=== PATIENT | female | born 1985 | race Caucasian/White ===

== ENCOUNTER → 2016-11-11 | Outpatient (CLI) | payer BC ==
[~2016-11-11] MED LIST: ATIVAN 1MG T1 MG/TAB PO; CEPHALEXIN500 M1 PO; CETIRIZINE; CLINDAMYCIN HC300 MG PO; CYMBALTA 20MG20 MG; CYMBALTA 60MG60 MG PO; DROSPIRENONE; FOLIC ACID0.4 MG PO; IBU800 M1 PO; IRON; PERCOCET 325 MG1 TA2 PO; PERCOCET 5/321 UDTAB PO; PLAQUENIL; PLAQUENIL 200M200 MG PO; PRENATAL1 TA7 PO; PREVACID30 MG PO; PROTONIX 40MG T40 MG PO; SINGULAIR; SINGULAIR 110 MG/TAB PO; VITAMIN E 400 U4001 PO; VITAMIN E200 I1 PO; ZYRTEC 10MG10 MG PO
== END ==
LOC: BHSO 08:28
DX: F33.41 Major depressive disorder, recurrent, in partial remission (principal)

== ENCOUNTER → 2016-12-23 | Outpatient (CLI) | payer BC | LOC: BHSO 15:33 | DX: F33.41 Major depressive disorder, recurrent, in partial remission (principal) ==

== ENCOUNTER → 2017-01-19 | Outpatient (CLI) | payer BC | LOC: BHSO 15:36 | DX: F33.41 Major depressive disorder, recurrent, in partial remission (principal) ==

== ENCOUNTER → 2017-03-31 | Outpatient (CLI) | payer BC | LOC: BHSO 15:35 | DX: F33.41 Major depressive disorder, recurrent, in partial remission (principal) ==

== ENCOUNTER → 2017-04-28 | Outpatient (CLI) | payer BC | LOC: BHSO 15:38 | DX: F33.41 Major depressive disorder, recurrent, in partial remission (principal) ==

== ENCOUNTER → 2017-05-26 | Outpatient (CLI) | payer BC | LOC: BHSO 15:14 | DX: F33.42 Major depressive disorder, recurrent, in full remission (principal) ==

== ENCOUNTER → 2017-06-29 | Outpatient (CLI) | payer BC | LOC: BHSO 15:12 | DX: F33.42 Major depressive disorder, recurrent, in full remission (principal) ==

== ENCOUNTER → 2017-07-28 | Outpatient (CLI) | payer BC | LOC: BHSO 15:20 | DX: F33.8 Other recurrent depressive disorders (principal) ==

== ENCOUNTER → 2017-09-08 | Outpatient (CLI) | payer BC | LOC: BHSO 15:19 | DX: F33.41 Major depressive disorder, recurrent, in partial remission (principal) ==

== ENCOUNTER 2017-10-02 16:38 | Inpatient (IN) | payer BC ==
[~2017-10-02] VITALS: Ht 165.1 cm; Wt 149.5 kg
[2017-11-13] VITALS (14 sets, daily range): BP systolic 112–139; BP diastolic 60–120; PULSE 68–107; TEMP 97.2–99
[2017-11-13] MEDS ORDERED: NATURAL IRON65 MG (10:48)
[2017-11-13] MEDS ORDERED: PLAQUENIL 200M200 MG PO (10:48)
[2017-11-13] MEDS ORDERED: PROTONIX 40MG T40 MG PO (10:48)
[2017-11-13] MEDS ORDERED: PRENATAL (10:49)
[2017-11-13] MEDS ORDERED: CYMBALTA 60MG60 MG PO (10:49)
[2017-11-13] MEDS ORDERED: SINGULAIR 110 MG/TAB PO (10:49)
[2017-11-13] MEDS ORDERED: ZYRTEC 10MG10 MG PO (10:49)
[2017-11-13] MEDS ORDERED: FOLIC ACID0.4 MG PO (10:50)
[2017-11-13] MEDS ORDERED: VITAMIN E 400 U4001 PO (10:50)
[2017-11-13 11:14] LABS: BASO % 0.3 % (0.0-2.0); EOS % 0.5 % (0-4.0); GRAN # 4.5 (1.4-6.5); GRAN % 73.5 % (42.2-75.2); HEMATOCRIT 37.6 % (37.0-47.0); HEMOGLOBIN 12.7 g/dl (12.5-16.0); LYMPH # 1.2 (1.2-3.4); MEAN CELL VOLUME 93 fl (80.0-100.0); MEAN CORPUSCULAR HEMOGLOBIN 31 pg (27.0-31.0); MEAN CORPUSCULAR HGB CONC 34 g/dl (33.0-37.0); MEAN PLATELET VOLUME 9.7 fl (7.4-10.4); MONO # 0.4 (0.1-0.6); MONO % 5.7 % (1.7-9.3); PLATELET COUNT 190 K/mm3 (130-400); RED BLOOD COUNT 4.05 M/mm3 (4.10-5.30); REDCELL DISTRIBUTION WIDTH-CV 13.4 % (11.5-14.5)
[2017-11-14 01:00] VITALS: BP 124/71; PULSE 89; TEMP 97.7
[2017-11-14 06:56] LABS: BASO % 0.4 % (0.0-2.0); EOS # 0.1 (0.0-0.7); EOS % 1.3 % (0-4.0); GRAN # 5.7 (1.4-6.5); GRAN % 73.5 % (42.2-75.2); LYMPH # 1.4 (1.2-3.4); LYMPH % 18.2 % (20.0-51.0); MEAN CELL VOLUME 93 fl (80.0-100.0); MEAN CORPUSCULAR HGB CONC 34 g/dl (33.0-37.0); MONO # 0.5 (0.1-0.6); MONO % 5.8 % (1.7-9.3); PLATELET COUNT 187 K/mm3 (130-400); RED BLOOD COUNT 3.75 M/mm3 (4.10-5.30); REDCELL DISTRIBUTION WIDTH-CV 13.2 % (11.5-14.5)
[2017-11-14 06:58] LABS: HEMATOCRIT 34.8 % (37.0-47.0); HEMOGLOBIN 11.9 g/dl (12.5-16.0); MEAN CORPUSCULAR HEMOGLOBIN 32 pg (27.0-31.0)
[2017-11-14 07:43] VITALS: BP 102/58; PULSE 90; TEMP 97.6
[2017-11-14] MEDS ORDERED: MOTRIN 600600 MG/TAB PO (08:52)
[2017-11-14] MEDS ORDERED: PERCOCET 325 MG1 TA2 PO (08:52)
[2017-11-14 15:57] VITALS: BP 121/77; PULSE 91; TEMP 98.3
[2017-11-14 20:15] VITALS: BP 137/74; PULSE 88; TEMP 97.4
[2017-11-15 06:34] VITALS: BP 136/88; PULSE 77
== END 2017-11-15 14:55 | disposition home or self-care (01) | DRG 765 ==
LOC: OB 11-13 09:37 → LDR 11-13 15:33 → OB 11-15 14:55 → LDR 11-16 13:17
PROVIDERS: Obstetrics & Gynecology
PROC: 10D00Z1 Extraction of Products of Conception, Low, Open Approach (ICD-10-PCS; principal; 2017-11-13)
DX: O34.211 Maternal care for low transverse scar from previous cesarean delivery (principal); Z68.43 Body mass index [BMI] 50.0-59.9, adult; N85.8 Other specified noninflammatory disorders of uterus; O99.214 Obesity complicating childbirth; E66.01 Morbid (severe) obesity due to excess calories; Z3A.39 39 weeks gestation of pregnancy; Z37.0 Single live birth
CPT/HCPCS: J0690; J1885; J2270; J2370; J2405; J2590; J2765; J7120

== ENCOUNTER → 2017-10-06 | Outpatient (CLI) | payer BC | LOC: BHSO 15:00 | DX: F33.42 Major depressive disorder, recurrent, in full remission (principal) ==

== ENCOUNTER → 2017-12-07 | Outpatient (CLI) | payer BC ==
[~2017-12-07] MED LIST changes: +MOTRIN 600600 MG/TAB PO; +NATURAL IRON65 MG; +PRENATAL
== END ==
LOC: BHSO 10:03
DX: F33.41 Major depressive disorder, recurrent, in partial remission (principal)
CPT/HCPCS: G0463

== ENCOUNTER → 2018-01-08 | Outpatient (CLI) | payer BC | LOC: BHSO 10:17 | DX: F33.42 Major depressive disorder, recurrent, in full remission (principal) | CPT/HCPCS: G0463 ==

== ENCOUNTER → 2018-02-22 | Outpatient (CLI) | payer BC | LOC: BHSO 15:00 | DX: F33.42 Major depressive disorder, recurrent, in full remission (principal) | CPT/HCPCS: G0463 ==

== ENCOUNTER → 2018-05-01 | Outpatient (CLI) | payer BC | LOC: BHSO 11:44 | DX: F33.41 Major depressive disorder, recurrent, in partial remission (principal) | CPT/HCPCS: G0463 ==

== ENCOUNTER → 2018-06-12 | Outpatient (CLI) | payer BC | LOC: BHSO 14:33 | DX: F33.41 Major depressive disorder, recurrent, in partial remission (principal) | CPT/HCPCS: G0463 ==

== ENCOUNTER → 2018-07-20 | Outpatient (CLI) | payer BC ==
[2018-07-20 15:28] LABS: BASO % 0.5 % (0.0-2.0); EOS # 0.1 (0.0-0.7); EOS % 1.1 % (0-4.0); GRAN % 60.9 % (42.2-75.2); HEMATOCRIT 42.6 % (37.0-47.0); HEMOGLOBIN 14.2 g/dl (12.5-16.0); LYMPH # 2.4 (1.2-3.4); LYMPH % 29.2 % (20.0-51.0); MEAN CELL VOLUME 89 fl (80.0-100.0); MEAN CORPUSCULAR HEMOGLOBIN 30 pg (27.0-31.0); MEAN CORPUSCULAR HGB CONC 33 g/dl (33.0-37.0); MEAN PLATELET VOLUME 10.7 fl (7.4-10.4); MONO # 0.6 (0.1-0.6); MONO % 7.8 % (1.7-9.3); PLATELET COUNT 120 K/mm3 (130-400); REDCELL DISTRIBUTION WIDTH-CV 12.8 % (11.5-14.5)
== END ==
LOC: COL.LAB 14:13
PROVIDERS: Internal Medicine
DX: R06.02 Shortness of breath (principal)

== ENCOUNTER → 2018-08-24 | Outpatient (CLI) | payer BC | LOC: BHSO 09:01 | DX: F33.41 Major depressive disorder, recurrent, in partial remission (principal) | CPT/HCPCS: G0463 ==

== ENCOUNTER → 2018-12-28 | Outpatient (CLI) | payer BC | LOC: BHSO 12:20 | DX: F33.41 Major depressive disorder, recurrent, in partial remission (principal) | CPT/HCPCS: G0463 ==

== ENCOUNTER → 2019-04-06 | Outpatient (CLI) | payer BC ==
[2019-04-06 09:38] LABS: BASO % 0.4 % (0.0-2.0); EOS % 0.7 % (0-4.0); GRAN # 3.3 (1.4-6.5); GRAN % 58.2 % (42.2-75.2); HEMATOCRIT 38.4 % (37.0-47.0); HEMOGLOBIN 12.9 g/dl (12.5-16.0); LYMPH # 1.9 (1.2-3.4); LYMPH % 33.6 % (20.0-51.0); MEAN CELL VOLUME 89 fl (80.0-100.0); MEAN CORPUSCULAR HEMOGLOBIN 30 pg (27.0-31.0); MEAN CORPUSCULAR HGB CONC 34 g/dl (33.0-37.0); MEAN PLATELET VOLUME 9.7 fl (7.4-10.4); MONO # 0.4 (0.1-0.6); MONO % 6.7 % (1.7-9.3); PLATELET COUNT 220 K/mm3 (130-400); RED BLOOD COUNT 4.33 M/mm3 (4.10-5.30); REDCELL DISTRIBUTION WIDTH-CV 12.3 % (11.5-14.5)
[2019-04-06 09:42] LABS: BILIRUBIN,TOTAL 0.4 mg/dL (0.0-1.0); C-REACTIVE PROTEIN 0.9 mg/dL (0.0-0.9); CALCIUM 9.9 mg/dL (8.4-10.2); CREATININE, serum 0.81 (0.52-1.25); POTASSIUM 4.2 mmol/L (3.4-5.0); TOTAL PROTEIN 7.8 gm/dL (6.4-8.2)
[2019-04-06 10:38] LABS: ERYTHROCYTE SEDIMENTATION RATE 14 mm/hr (0-20)
== END ==
LOC: COL.LAB 09:06
PROVIDERS: Family Medicine
DX: L94.8 Other specified localized connective tissue disorders (principal); R60.9 Edema, unspecified

== ENCOUNTER → 2019-08-02 | Outpatient (CLI) | payer BC | LOC: BHSO 15:43 | DX: F33.41 Major depressive disorder, recurrent, in partial remission (principal) | CPT/HCPCS: G0463 ==

== ENCOUNTER → 2019-10-04 | Outpatient (CLI) | payer BC | LOC: BHSO 15:57 | DX: F33.41 Major depressive disorder, recurrent, in partial remission (principal) | CPT/HCPCS: G0463 ==

== ENCOUNTER 2020-01-15 14:36 | Emergency (ER) | payer BC ==
[~2020-01-15] VITALS: Ht 165.1 cm; Wt 154.5 kg
[2020-01-15 14:50] VITALS: BP 155/103
[2020-01-15 16:25] VITALS: PULSE 87; TEMP 98.8
== END 2020-01-15 16:25 | disposition home or self-care (01) ==
LOC: COL.ER 14:36
DX: J40 Bronchitis, not specified as acute or chronic (principal); F32.9 Major depressive disorder, single episode, unspecified; E66.01 Morbid (severe) obesity due to excess calories; Z68.43 Body mass index [BMI] 50.0-59.9, adult; Z79.1 Long term (current) use of non-steroidal anti-inflammatories (NSAID)

== ENCOUNTER → 2020-02-07 | Outpatient (CLI) | payer BC | LOC: BHSO 13:39 | DX: F33.1 Major depressive disorder, recurrent, moderate (principal) | CPT/HCPCS: G0463 ==

== ENCOUNTER → 2020-04-14 | Outpatient (CLI) | payer BC | LOC: BHSO 15:58 | DX: F33.42 Major depressive disorder, recurrent, in full remission (principal) | CPT/HCPCS: G0463 ==

== ENCOUNTER → 2020-07-14 | Outpatient (CLI) | payer BC | LOC: BHSO 16:12 | DX: F33.42 Major depressive disorder, recurrent, in full remission (principal) | CPT/HCPCS: G0463 ==

== ENCOUNTER → 2020-07-22 | Outpatient (CLI) | payer BC | LOC: COL.RAD 09:14 | DX: K76.0 Fatty (change of) liver, not elsewhere classified (principal); Z90.49 Acquired absence of other specified parts of digestive tract ==

== ENCOUNTER → 2021-07-26 | Outpatient (CLI) | payer BC | LOC: COL.RAD 07:33 | DX: Z31.41 Encounter for fertility testing (principal) | CPT/HCPCS: Q9967 ==

== ENCOUNTER 2022-06-02 03:10 | Inpatient (IN) | payer BC ==
[~2022-06-02] VITALS: Ht 165.1 cm; Wt 177.7 kg
[2022-06-02] VITALS (27 sets, daily range): BP systolic 96–162; BP diastolic 50–92; PULSE 63–94; TEMP 97.1–99.1
--- NOTE | 2022-06-02 03:25 | NUR ---
G3L2. 36-5. Ambulatory to LDR 2. Clean gown on. EFM X2 and TOCO explained and applied. Pt states she woke up to a big gush of fluid at 0230 and since then fluid has continued to leak. Pt "thinks" fluid is clear but unsure. Pt denies contractions, reports some tightening in her lower abdomen and lower back. Reports good movement. Plan of care explained. 0335: SVE . Amniotrace +. Pt denies contractions still at this point. 0415: notified. Admit orders received. Pt updated on plan of care. see physican notification. 0425: IV started and labs obtained. Pt requesting nausea medication. Anthony PRATT notified. 0615: Pt's pain starting to increase. notified on pt's pain status.
[2022-06-02] MEDS ORDERED: HYDROXYCHLOROQ400 MG PO (03:50)
[2022-06-02] MEDS ORDERED: PROTONIX 40MG T40 MG PO (03:51)
[2022-06-02] MEDS ORDERED: ASPIRIN 81M81 MG/TA2 PO (03:51)
[2022-06-02] MEDS ORDERED: TRANDATE 200MG200 MG PO (03:52)
[2022-06-02] MEDS ORDERED: TRANDATE 100MG100 MG PO (03:52)
[2022-06-02] MEDS ORDERED: VITAMIN D31000 I1 PO (03:53)
[2022-06-02] MEDS ORDERED: NATURAL IRON65 MG PO (03:54)
[2022-06-02] MEDS ORDERED: CALCIUM 600MG+D1 TAB PO (03:54)
[2022-06-02] MEDS ORDERED: VTAMINC250TA PO (03:54)
[2022-06-02] MEDS ORDERED: COLACE 100100 MG/CAP PO (03:55)
[2022-06-02] MEDS ORDERED: FOLIC ACID 40400 MCG PO (03:55)
[2022-06-02 04:57] LABS: BASO % 0.4 % (0.0-2.0); EOS # 0.1 K/mm3 (0.0-0.7); EOS % 0.9 % (0.0-4.0); GRAN % 71.8 % (42.2-75.2); HEMATOCRIT 37.4 % (37.0-47.0); HEMOGLOBIN 13.1 g/dl (12.5-16.0); LYMPH # 1.2 K/mm3 (1.2-3.4); LYMPH % 20.6 % (20.0-51.0); MEAN CELL VOLUME 92 fl (80.0-100.0); MEAN CORPUSCULAR HEMOGLOBIN 32 pg (27-31); MEAN CORPUSCULAR HGB CONC 35 g/dl (33.0-37.0); MEAN PLATELET VOLUME 10.8 fl (7.4-10.4); MONO # 0.3 K/mm3 (0.1-0.6); MONO % 5.6 % (1.7-9.3); PLATELET COUNT 235 K/mm3 (130-400); RED BLOOD COUNT 4.06 M/mm3 (4.10-5.30); REDCELL DISTRIBUTION WIDTH-CV 13.5 % (11.5-14.5)
[2022-06-02 05:07] LABS: ALBUMIN 2.6 gm/dL (3.5-5.0); BILIRUBIN,TOTAL 0.5 mg/dL (0.2-1.2); CALCIUM 9.4 mg/dL (8.4-10.2); CREATININE, serum 0.73 mg/dL (0.57-1.11); TOTAL PROTEIN 6.5 gm/dL (6.2-8.1)
--- NOTE | 2022-06-02 06:30 | NUR ---
Difficulty tracing contractions due to maternal size. Pt reports contractions being back to back and not getting much rest between.
--- NOTE | 2022-06-02 07:28 | NUR ---
0728-Patient off EFM and ambulatory to OR.
--- NOTE | 2022-06-02 09:00 | NUR ---
0900-Patient to PACU via bed. A&Ox4. Recieved report from [facility]. VSS, see flow record. Assessment complete. Fundal massage firm. Lochia WNL. Dressing to abdomen C/D/I. Binder in place. Remained with patient per PACU protocol.
--- NOTE | 2022-06-02 09:45 | NUR ---
[facility] to [facility]. VSS. Updated on recovery plan of care. Gerrad remains WNL.
--- NOTE | 2022-06-02 17:45 | NUR ---
1745-Patient up to bathroom. Metz discontinued, amy care assisted. Ambulates with steady gait around room.
[2022-06-03] VITALS (7 sets, daily range): BP systolic 112–145; BP diastolic 56–90; PULSE 79–90; TEMP 98.1–100.7
--- NOTE | 2022-06-03 02:00 | NUR ---
MOM STATES SHE IS EXHAUSTED- STATES SHE HAS BEEN UNABLE TO GET ANY SLEEP. RN OFFERS TO FEED TWINS IN NSY- MOM STATES THAT WOULD BE GREAT PT HAS ON HER CPAP MACHINE AND SHE PREPARES TO SLEEP. MOTRIN 600 GIVEN AT 0215. VItals also taken at this time
[2022-06-03 07:42] LABS: HEMOGLOBIN 11.5 g/dl (12.5-16.0)
[2022-06-03 07:43] LABS: HEMATOCRIT 33.9 % (37.0-47.0)
--- NOTE | 2022-06-03 10:12 | NUR ---
Initial visit; Patient thanked [employer] for stopping and offering congratulations and God's blessings for the of her twin girls. [employer] thanked mom for choosing our hospital.
--- NOTE | 2022-06-03 21:00 | NUR ---
Pt refuses Trandate 100mg stating "my BP was low earlier, and not very high now. I don't think I should take it."
[2022-06-04 08:30] VITALS: BP 129/63; PULSE 76; TEMP 97.8
[2022-06-04] MEDS ORDERED: PERCOCET 325 MG1 TA2 PO (11:03)
[2022-06-04] MEDS ORDERED: IBU600 MG PO (11:03)
--- NOTE | 2022-06-04 15:21 | NUR ---
DISCHARGE INSTRUCTIONS REVIEWED WITH PT REGARDING INCISION/WOUND CARE, FOLLOW-UP APPOINTMENTS AND MEDICATIONS. QUESTIONS INVITED AND ANSWERED. PT VERBALIZES UNDERSTANDING. PT DISCHARGED HOME, AMBULATES OUT OF FACILITY ACCOMPANIED BY THIS NURSE AND PT'S SISTER.
== END 2022-06-04 15:15 | disposition home or self-care (01) | DRG 788 ==
LOC: LDRO 03:10 → OB 04:37 → LDR 04:37 → OB 09:45
PROVIDERS: Obstetrics & Gynecology; ADMIT Obstetrics & Gynecology
PROC: 10D00Z1 Extraction of Products of Conception, Low, Open Approach (ICD-10-PCS; principal; 2022-06-02)
DX: O99.214 Obesity complicating childbirth (principal); K21.9 Gastro-esophageal reflux disease without esophagitis; O99.62 Diseases of the digestive system complicating childbirth; O10.92 Unspecified pre-existing hypertension complicating childbirth; O42.913 Preterm premature rupture of membranes, unspecified as to length of time between rupture and onset of labor, third trimester; O99.344 Other mental disorders complicating childbirth; F41.9 Anxiety disorder, unspecified; F32.A Depression, unspecified; J45.909 Unspecified asthma, uncomplicated; O99.52 Diseases of the respiratory system complicating childbirth; O99.02 Anemia complicating childbirth; D89.89 Other specified disorders involving the immune mechanism, not elsewhere classified; O99.892 Other specified diseases and conditions complicating childbirth; D64.9 Anemia, unspecified; G47.30 Sleep apnea, unspecified; Z90.49 Acquired absence of other specified parts of digestive tract; Z90.89 Acquired absence of other organs; Z3A.36 36 weeks gestation of pregnancy; Z79.82 Long term (current) use of aspirin; Z88.8 Allergy status to other drugs, medicaments and biological substances; Z86.16 Personal history of COVID-19; Z88.1 Allergy status to other antibiotic agents; Z91.013 Allergy to seafood; Z37.2 Twins, both liveborn
CPT/HCPCS: J0456; J0690; J1885; J2370; J2405; J2590; J7050; J7120

== ENCOUNTER → 2023-08-30 | Outpatient (CLI) | payer BC ==
[~2023-08-30] MED LIST changes: +ASPIRIN 81M81 MG/TA2 PO; +CALCIUM 600MG+D1 TAB PO; +COLACE 100100 MG/CAP PO; +FOLIC ACID 40400 MCG PO; +HYDROXYCHLOROQ400 MG PO; +IBU600 MG PO; +NATURAL IRON65 MG PO; +TRANDATE 100MG100 MG PO; +TRANDATE 200MG200 MG PO; +VITAMIN D31000 I1 PO; +VTAMINC250TA PO
== END ==
LOC: COL.RAD 09:26
DX: K21.9 Gastro-esophageal reflux disease without esophagitis (principal); K58.2 Mixed irritable bowel syndrome; K75.81 Nonalcoholic steatohepatitis (NASH); Z90.49 Acquired absence of other specified parts of digestive tract